=== PATIENT | female | born 1935 | race Caucasian/White ===

== ENCOUNTER → 2017-08-03 | Outpatient (CLI) | payer MEDICARE, OTHER ==
[~2017-08-03] VITALS: Ht 154.9 cm; Wt 49.9 kg
[~2017-08-03] MED LIST: ASP81TEC PO; CALC-29 PO; CHOL200018 PO; ENAL2.5T PO; GINK60CA13 PO; MILK1POW PO; MTP25TSR PO; OMEG1CAP58 PO; REGADENOSON 0.4 MG/5 ML SYR (LEXISCAN) IV ONE; SIMV40TA2 PO; UBID30CA13 PO; [UNRECOGNIZED DRUG - CODE] PO
[2017-08-03] MEDS: CATHETER FLUSH 10 ML SYR IV PRN ×2 (08:36→08:38)
[2017-08-03 10:28] VITALS: BP 156/85
--- NOTE | 2017-08-04 06:47 | STRESS TEST ---
DATE OF SERVICE: 08/03/2017 LEXISCAN MYOVIEW STRESS TEST REFERRING PHYSICIAN: Amanda Cronin MD Baseline heart rate is 55. Baseline blood pressure 159/73, baseline EKG, sinus rhythm with no ischemic changes. In summary, the patient was injected with 10.36 mCi of technetium-99 Myoview and the resting images were obtained. Then, the patient received 0.4 mg of Lexiscan followed by 28.8 mCi of technetium-99 Myoview. Throughout the test, there were no EKG changes. The resting and stress images were reviewed and compared in the short axis, horizontal long axis, and vertical long axis views. Review of the images showed good radiotracer uptake with no significant ischemia or infarction. SSS is 4, SDS 3, TID value 1.06. On the gated images, the left ventricle appeared to be small in size with normal contractility. Calculated ejection fraction 69%. CONCLUSION: 1. The patient tolerated Lexiscan well. 2. No ischemia or infarction on SPECT images. 3. Normal left ventricular size with normal contractility. Calculated ejection fraction is 69%. Job ID: [id number] DocumentID: [id number] Dictated Date: 08/03/2017 15:40:35 Behavior Support Specialist Date: 08/04/2017 00:26:32 Dictated By: RUBENS STERN MD
== END ==
LOC: CARD 08:06
PROVIDERS: ATTEND Internal Medicine Cardiovascular Disease
DX: R07.9 Chest pain, unspecified (principal); I25.10 Atherosclerotic heart disease of native coronary artery without angina pectoris; I10 Essential (primary) hypertension; E78.5 Hyperlipidemia, unspecified
CPT/HCPCS: 78452; 93005; 93017

== ENCOUNTER → 2023-03-28 | Outpatient (CLI) | payer MEDICARE ==
[~2023-03-28] VITALS: Ht 152 cm; Wt 45.0 kg
[2023-03-28] MEDS: CATHETER FLUSH 10 ML SYR IVP PRN ×2 (08:33→09:42)
[2023-03-28 09:36] VITALS: BP 134/75
--- NOTE | 2023-03-28 11:35 | Cardiology Stress Test Report ---
Stress Test Report Date of Procedure/Referring: Date of Procedure: Mar 28, 2023 PCP Amanda Collier MD Admitting Physician Admitting Physician: Attending Physician: Zbigniew Carlisle MD Baseline Heart Rate: 58 Baseline Blood Pressure: Blood Pressure Systolic: 134 Blood Pressure Diastolic: 75 Baseline Vitals Vital Signs Date Time Temp Pulse Resp B/P (MAP) Pulse Ox O2 Delivery O2 Flow Rate FiO2 03/28/23 09:36 58 20 134/75 (94) 98 Room Air Baseline EKG: Baseline EKG: NSR Summary After explaining the procedure to the patient, she signed a consent and then brought to the stress nuclear laboratory. Patient received 0.4 mg Lexiscan for stress test, ECG, heart rate and blood pressure were monitored continuously. Resting and stress dose of radio tracer were injected, imaging was acquired and reviewed in short axis, horizontal long axis and vertical long axis views. TID: 1.16 SSS: 0 SDS: 0 EF: 68 Patient tolerated Lexiscan well No significant ischemia or infarction noted on SPECT images Normal left ventricular size, ejection fraction 68% Copy Copies To 1: AMANDA COLLIER MD, BASHAR J MD Mar 28, 2023 11:35
== END ==
LOC: CARD 08:17
PROVIDERS: ATTEND Internal Medicine Cardiovascular Disease
DX: I25.10 Atherosclerotic heart disease of native coronary artery without angina pectoris (principal); I10 Essential (primary) hypertension
CPT/HCPCS: 78452; 93017; A9502